=== PATIENT | male | born 1955 ===

== ENCOUNTER 2025-07-23 15:35 | Outpatient (REF) | payer BC, SELFPAY ==
--- OUTSIDE RECORDS SUMMARY | 2025-07-15 10:30 | XMS_ITS | Encounter Summary ---
Author Organization [facility] Address [address] [place] [address] Care Team Providers Care Lode Miner Name Role Phone Ethan Nieto MD Primary Care Provider +1- [phone] Reason for Visit * ReasonCommentsEar ProblemRt ear drainage/hx middle ear issues/Audio 07/10/25 Encounter Details DateTypeDepartmentCare Team (Latest Contact Info)Utcswvzchhi70/20/2025 10:30 AM EDTOffice Visit [facility] [address] [facility] [address] [place] [id number] Melanie Lorenz MD [address] [facility] [address] [place] [address] Sensorineural hearing loss (SNHL) of left ear with unrestricted hearing of right ear (Primary Dx); Mixed conductive and sensorineural hearing loss of right ear with restricted hearing of left ear; Lesion of uvula Social History Tobacco UseTypesPacks/DayYears UsedDateSmoking Tobacco: NeverSmokeless Tobacco: NeverAlcohol UseStandard Drinks/WeekCommentsNot Currently0 (1 standard drink = 0.6 oz pure alcohol)Sex and Gender InformationValueDate RecordedSex Assigned at BirthNot on fileLegal McwJefn0301/04/2024 10:44 AM EDTGender IdentityNot on file Sexual OrientationNot on filedocumented as of this encounter Last Filed Vital Signs Vital SignReadingTime TakenCommentsBlood Dpbpzfej459/7710 10:18 AM EDT Qnkrr657307/15/2025 10:18 AM EDTTemperature--Respiratory Rate--Oxygen Saturation-- Inhaled Oxygen Concentration--Bmdkyq30.6 kg (182 lb)07/15/2025 10:18 AM EDT Cklewy281.7 cm (5' 8 )07/15/2025 10:18 AM EDTBody Mass Index27.6707/15/2025 10:18 AM EDTdocumented in this encounter Progress Notes * Melanie Lorenz MD - 07/15/2025 10:30 AM EDT Subjective Patient ID: Abdulaziz Naidu is a 69 y.o. male who presents for Ear Problem (Rt ear drainage/hx middleear issues/Audio 07/10/25) Pt reports a many year h/o RT hearing loss he relates to frequent infections as a child. No h/o earsurgery. 07/10 audio shows emmie mixed HL with markedly asymmetric neve line on the RT. Review of Systems All other systems reviewed and are negative. Family History[1] Active Ambulatory Problems Diagnosis Date Noted Essential hypertension 05/08/2018 Dupuytren's contracture 05/21/2024 Seasonal allergic rhinitis 07/04/2025 Resolved Ambulatory Problems Diagnosis Date Noted No Resolved Ambulatory Problems Past Medical History: Diagnosis Date Diverticulosis DVT (deep venous thrombosis) ([facility] 2000 Ear problems Surgical History[2] Allergies[3] Medications Ordered Prior to Encounter[4] Objective Last Recorded Vitals Vitals: 07/15/25 1018 BP: 156/77 Pulse: 66 ENT Physical Exam Constitutional Appearance: patient appears well-developed and well-nourished, Head and Face Appearance: head appears normal and face appears atraumatic; Ear Ear Canals: right ear canal normal; left ear canal normal; Tympanic Membranes: left tympanic membrane normal; Ear comments: RT post TM retraction with stapediopexy. Clement lat to RT Nose External Nose: nares patent bilaterally; external nose normal; Internal Nose: nasal mucosa normal; Oral Cavity/Oropharynx Lips: normal; Teeth: normal; Gums: gingiva normal; Tongue: normal; Oral mucosa: normal; Hard palate: normal; OC/OP comments: Papilloma RT uvula Neck Neck: neck normal; neck palpation normal; Thyroid: thyroid normal; Respiratory Inspection: breathing unlabored; normal breathing rate; Auscultation: breath sounds are clear; Cardiovascular Inspection: extremities are warm and well perfused; no peripheral edema present; Auscultation: regular rate and rhythm; Assessment/Plan Diagnoses and all orders for this visit: Sensorineural hearing loss (SNHL) of left ear with unrestricted hearing of right ear Mixed conductive and sensorineural hearing loss of right ear with restricted hearing of left ear Lesion of uvula Pt's hearing and exam are c/w RT mixed HL. No active ME dz evident. Cleared for RT BLACK F/U for r/o papilloma in the office [1] No family history on file. [2] Past Surgical History: Procedure Laterality Date COLONOSCOPY 2012 DUPUYTREN CONTRACTURE RELEASE Left 02/22/2024 Release of Dupuytren's contracture with excision of palmar and volar finger fascia involving contracture of the palm and the left little finger - Dr Nelson FOOT SURGERY Bilateral Arch ROTATOR CUFF REPAIR Right [3] No Known Allergies [4] Current Outpatient Medications on File Prior to Visit Medication Sig Dispense Refill albuterol HFA 90 mcg/act inhaler Inhale 2 puffs ascorbic acid (Vitamin C) 250 MG tablet Take 1 tablet by mouth Daily aspirin 81 MG EC tablet Take 81 mg by mouth Daily therapeutic multivitamin-minerals (Theragran-M) tablet Take 1 tablet by mouth Daily No current facility-administered medications on file prior to visit. documented in this encounter Plan of Treatment DateTypeDepartmentCare Team (Latest Contact Info)Mwndcrtbkpx94/21/2026 9:30 AM ESTClinical Support [facility] [address] [place] [address] [place] [address] Salima Harris, [facility] [address] [place] [address] documented as of this encounter Visit Diagnoses Diagnosis Sensorineural hearing loss (SNHL) of left ear with unrestricted hearing of right ear- Primary Mixed conductive and sensorineural hearing loss of right ear with restricted hearing of left ear Lesion of uvula documented in this encounter Care Teams Team MemberRelationshipSpecialtyStart DateEnd Date Ethan Nieto MD [address] [place] [address] PCP - GeneralFami Medicine01/11/24documented as of this encounter
--- OUTSIDE RECORDS SUMMARY | 2025-07-23 11:30 | XMS_ITS | Encounter Summary ---
Author Organization [facility] Address [address] [place] [address] Care Team Providers Care Vibratory Pile Driver Name Role Phone Ethan Nieto MD Primary Care Provider +1- [phone] Reason for Visit * ReasonCommentsEar ProblemRemove evula lesion Encounter Details DateTypeDepartmentCare Team (Latest Contact Info)Lsetofafqwl57/28/2025 11:30 AM EDTOffice Visit [facility] [address] [facility] [address] [place] [address] Melanie Lorenz MD [address] [place] [address] [place] [address] Lesion of uvula (Primary Dx) Social History Tobacco UseTypesPacks/DayYears UsedDateSmoking Tobacco: NeverSmokeless Tobacco: NeverAlcohol UseStandard Drinks/WeekCommentsNot Currently0 (1 standard drink = 0.6 oz pure alcohol)Sex and Gender InformationValueDate RecordedSex Assigned at BirthNot on fileLegal ZzoOfoj01/06/2024 10:44 AM EDTGender IdentityNot on file Sexual OrientationNot on filedocumented as of this encounter Last Filed Vital Signs Vital SignReadingTime TakenCommentsBlood Qzkbwxmd676/7307/23/2025 11:21 AM EDT Rnkvg261407/23/2025 11:21 AM EDTTemperature--Respiratory Rate--Oxygen Saturation-- Inhaled Oxygen Concentration--Joiepb15.6 kg (182 lb)07/23/2025 11:21 AM EDT Qkxhqi572.7 cm (5' 8 )07/23/2025 11:21 AM EDTBody Mass Index27.6707/23/2025 11:21 AM EDTdocumented in this encounter Progress Notes * Melanie Lorenz MD - 07/23/2025 11:30 AM EDT Images from the original note were not included. Subjective Patient ID: Abdulaziz Naidu is a 69 y.o. male who presents for Ear Problem (Remove evula lesion) Family History[1] Active Ambulatory Problems Diagnosis Date Noted Essential hypertension 05/08/2018 Dupuytren's contracture 05/21/2024 Seasonal allergic rhinitis 07/04/2025 Resolved Ambulatory Problems Diagnosis Date Noted No Resolved Ambulatory Problems Past Medical History: Diagnosis Date Diverticulosis DVT (deep venous thrombosis) ([facility]) 2000 Ear problems Surgical History[2] Allergies[3] Medications Ordered Prior to Encounter[4] Objective Last Recorded Vitals Vitals: 07/23/25 1121 BP: 143/73 Pulse: 58 ENT Physical Exam Oral Cavity/Oropharynx OC/OP comments: Papillomatous lesion LT uvula Patient ID: Abdulaziz Naidu is a 69 y.o. male. Procedures After anesthetizing uvula with lidocaine with epi, lesion removed with a large cup forceps. Minimalself-limited bleeding Assessment/Plan Diagnoses and all orders for this visit: Lesion of uvula Uvula lesion removed without complication and sent for pathology [1] No family history on file. [2] [...] Plan of Treatment DateTypeDepartmentCare Team (Latest Contact Info)Hslwfkdngdb55/21/2026 9:30 AM ESTClinical Support [facility] [address] [place] [address] [place] [address] Salima Harris, [facility] [address] [place] [address] documented as of this encounter Visit Diagnoses Diagnosis Lesion of uvula- Primary documented in this encounter Care Teams Team MemberRelationshipSpecialtyStart DateEnd Date Ethan Nieto MD [address] [place] [address] PCP - GeneralFamily Medicine01/11/24documented as of this encounter
--- OUTSIDE RECORDS SUMMARY | 2025-07-25 15:44 | XMS_ITS | Encounter Summary ---
Author Organization [facility] Address [address] [place] [address] Care Team Providers Care Solar Fabrication Technician Name Role Phone Ethan Nieto MD Primary Care Provider +1- [phone] Encounter Details DateTypeDepartmentCare Team (Latest Contact Info)Nbfuysuojqm54/28/2025amboo flowsheet [facility] [address] [place] [address] [place] [address] Melanie Lorenz MD [address] [place] [address] [place], [place] [id number] Social History Tobacco UseTypesPacks/DayYears UsedDateSmoking Tobacco: NeverSmokeless Tobacco: NeverAlcohol UseStandard Drinks/WeekCommentsNot Currently0 (1 standard drink = 0.6 oz pure alcohol)Sex and Gender InformationValueDate RecordedSex Assigned at BirthNot on fileLegal BqcOvlh0601/04/2024 10:44 AM EDTGender IdentityNot on file Sexual OrientationNot on filedocumented as of this encounter Plan of Treatment DateTypeDepartmentCare Team (Latest Contact Info)Kowdipragym58/21/2026 9:30 AM ESTClinical Support [facility] [address] [place] [address] [place] [address] Salima Harris, [facility] [address] [place] [address] documented as of this encounter Visit Diagnoses Not on filedocumented in this encounter Care Teams Team MemberRelationshipSpecialtyStart DateEnd Date Ethan Nieto MD [address] [place] [address] PCP - GeneralFamily Medicine01/11/24documented as of this encounter
--- OUTSIDE RECORDS SUMMARY | 2025-07-25 15:44 | XMS_ITS | Clinical Summary ---
Author Organization [facility] Address [address] [facility], [address] [place] [address] Care Team Providers Care Commercial Intern Name Role Phone Ethan Nieto MD Primary Care Provider + Allergies No known active allergies Medications MedicationSigDispense QuantityRefillsLast FilledStart DateEnd DateStatus Multiple Vitamins-Minerals (THERAPEUTIC MULTIVITAMIN-MINERALS) tablet Take 1 tablet by mouth dailyActive VITAMIN E PO Take by mouthActive Ascorbic Acid (VITAMIN C) 250 MG tablet Take 1 tablet by mouth dailyActive albuterol sulfate HFA (VENTOLIN HFA) 108 (90 Base) MCG/ACT inhaler Indications:Atypical pneumoniaInhale 2 puffs into the lungs 4 times daily as needed for Wheezing 18 g 4Active Additional Information Patient not taking.Reported on 02/06/2024 aspirin (ASPIRIN ADULT LOW DOSE) 81 MG EC tablet Indications:Essential hypertension,HypertriglyceridemiaTake 1 tablet by mouth daily 100 tablet 5ActiveHospital, Clinic, or Other Facility Administered Medication Ordered DoseRouteFrequencyStart DateEnd DateStatus dexAMETHasone Sodium Phosphate injection 4 mg Indications:Non-seasonal allergic rhinitis due to pollen4 caMTJXLK81/03/2024 Active dexAMETHasone Sodium Phosphate IntraMUSCular 4 mg Indications:Seasonal allergic reaction,Seasonal allergic rhinitis, unspecified trigger4 nxTPHNPL83Ended Active Problems ProblemNoted DateDiagnosed DateSeasonal allergic /09/2025Dupuytren's jrydkngvtdc38/26/2024Essential orsjvxvgibwe93/13/6511Ajlsvusx87/22/2016Cough with jhnnan9401/19/2016Rotator cuff syndrome of right /02/2015 Resolved Problems ProblemNoted DateDiagnosed DateResolved DateSore qatmgv46 Encounters DateTypeDepartmentCare ArphPoqjkviariy79/28/2025Results Follow-Up [address] [address] Irena Jimenez, TWISTING FRAME CHANGER - GUEST RELATIONS ASSOCIATE 07/08/2025Orders Only [address] [address] Irena Jimenez, TWISTING FRAME CHANGER - GUEST RELATIONS ASSOCIATE Diabetes mellitus screening; Essential hypertension; BMI 29.0-29.9,adult; Seasonal allergic reaction; Encounter for screening for hematologic disorder; Screening for metabolic disorder; Screening for lipid disorders; Screening for malignant neoplasm of prostate; Rotator cuff syndrome of right shoulder; Dupuytren's contracture; Screening for thyroid disorder; Feldmpyyniljitpjqubp18/09/2025 9:20 AM EDTOffice Visit [address] [address] Irena Jimenez, TWISTING FRAME CHANGER - GUEST RELATIONS ASSOCIATE Essential hypertension (Primary Dx); BMI 29.0-29.9,adult; Seasonal allergic reaction; Encounter for screening for hematologic disorder; Screening for metabolic disorder; Screening for lipid disorders; Screening for malignant neoplasm of prostate; Rotator cuff syndrome of right shoulder; Dupuytren's contracture; Screening for thyroid disorder; Hypertriglyceridemia; Encounter for well adult exam without abnormal findings; Screening for cardiovascular condition; Seasonal allergic rhinitis, unspecified trigger; Diabetes mellitus vfkuellha50/30/2025Orders Only [address] [place] [address] Ethan Nieto MD Bilateral hearing loss, unspecified hearing loss type (Primary Dx)from Last 3 Months Immunizations ImmunizationAdministration DatesNext DueCOVID-19, Inactive, MODERNA BLUE border, Primary or Immunocompromised, (age 12y+)09/06/2021TDaP, ADACEL (age 10y-64y), BOOSTRIX (age 10y+), IM, 0.5mL05/09/2017 Family History Medical HistoryRelationNameCommentsSeizuresBrother 6samHigh Blood Pressure Brother 7DiabetesFatherNo Known ProblemsMotherhazelDiabetesSister 2RelationName StatusCommentsBrother 1AliveBrother 2AliveBrother 3AliveBrother 4AliveBrother 5 AliveBrother 6samDeceasedBrother 7AliveFatherDeceased (Age 51)pneumonia and strokeMotherhazelDeceasedSister 1AliveSister 2DeceasedSister 3AliveSister 4Alive Social History Tobacco UseTypesPacks/DayYears UsedDateSmoking Tobacco: NeverSmokeless Tobacco: Never Tobacco Cessation:Counseling Given: Not Answered Alcohol UseStandard Drinks/WeekCommentsNo0 (1 standard drink = 0.6 oz pure alcohol)AUDIT-CAnswerDate RecordedQ1: How often do you have a drink containing alcohol?Never09/12/2024Q2: How many drinks containing alcohol do you have on a typical day when you are drinking?Patient does not drink09/12/2024Q3: How often do you have six or more drinks on one occasion?Never09/12/2024Overall Financial Resource Strain (CARDIA)AnswerDate RecordedHow hard is it for you to pay for the very basics like food, housing, medical care, and heating?Not hard at all 10/04/2023HQ-2AnswerDate RecordedPHQ-9 Total Ekgzy490Exercise Vital SignAnswerDate RecordedOn average, how many days per week do you engage in moderate to strenuous exercise (like a brisk walk)?5 days09/12/2024On average, how many minutes do you engage in exercise at this level?60 min09/12/2024RAPARE - TransportationAnswerDate RecordedLack of Transportation (Medical)Not on file 10/04/2023In the past 12 months, has lack of transportation kept you from meetings, work, or from getting things needed for daily living?No10/04/2023 Housing Stability Vital SignAnswerDate RecordedUnable to Pay for Housing in the Last YearNot on file10/04/2023Number of Places Lived in the Last YearNot on file 10/04/2023In the last 12 months, was there a time when you did not have a steady place to sleep or slept in kekahaelter (including now)?No10/04/2023Housing Stability Vital SignAnswerDate RecordedIn the last 12 months, was there a time when you were not able to pay the mortgage or rent on time?No07/04/2025In the past 12 months, how many times have you moved where you were living? At any time in the past 12 months, were you homeless or living in a care home (including now)?No07/04/2025Hunger Vital SignAnswerDate RecordedWithin the past 12 months, you worried that your food would run out before you got the money to buymore.Never true07/04/2025Within the past 12 months, the food you bought just didn't last and you didn't have money to get more.Never true07/04/2025PRAPARE - TransportationAnswerDate RecordedIn the past 12 months, has lack of transportation kept you from medical appointments or from getting medications?No 07/04/2025In the past 12 months, has lack of transportation kept you from meetings, work, or from getting things needed for daily living?No07/04/2025HC UtilitiesAnswerDate RecordedIn the past 12 months has the [employer], gas, oil, or water [employer] threatened to shut off services in your home?No07/04/2025Sex and Gender InformationValueDate RecordedSex Assigned at BirthNot on fileLegal Sex Male11/05/2012 11:35 AM ESTGender IdentityNot on fileSexual OrientationNot on file Last Filed Vital Signs Vital SignReadingTime TakenCommentsBlood Nxjlcfes444/7407/04/2025 9:21 AM EDT Ddesl096407/04/2025 9:21 AM BNSKovqmodhflk14.6 ??C (97.9 ??F)07/04/2025 9:21 AM EDTRespiratory Uqln3824 9:21 AM EDTOxygen Mtekymmqdf85%07/04/2025 9:21 AM EDTInhaled Oxygen Concentration--Ntnglv45.5 kg (184 lb)07/04/2025 9:21 AM EDT Tlltls493.6 cm (5' 6 )07/04/2025 9:21 AM EDTBody Mass Index29. 9:21 AM EDT Plan of Treatment DateTypeDepartmentCare Team (Latest Contact Info)Reaxsuwqoyj88/09/2026 9:20 AM EDTOffice Visit [facility] [address] [place] [address] Irena Jimenez, TWISTING FRAME CHANGER - GUEST RELATIONS ASSOCIATE [address] [place] [address] 6 MONTH F/UHealth MaintenanceDue DateLast DoneCommentsFIT/FOBT: Average risk 2002Fecal-DNA (Cologuard): Average risk2002Sigmoidoscopy/CT tnpmbuiqqrxq33/26/2003Pneumococcal 50+ years Vaccine (1 of 1 - PCV)2007 Shingles vaccine (1 of 2)2007Flu vaccine (#1)5COVID-19 Vaccine (2 - season)nnual Wellness Visit (Medicare)09/13/2025 4Depression Rtgden18/05/2025, 07/04/2025DTaP/Tdap/Td vaccine (2 - Td or Tdap)Diabetes focmka44, 07/03/20241563Iicyal81, 07/03/2024, 05/09/2023, Additional history existsRespiratory Syncytial Virus (RSV) or age 60 yrs+ (1 - 1-dose 75+ series)5568Xnzuraqevlb39/10/895274/06/2023, 07/24/2012Colorectal Cancer Yehapj8801/03/2033A1C test (Diabetic or Prediabetic)Rbdsvsvjwglu35/09/2025, 4Prostate Specific Antigen (PSA) Screening or MonitoringDiscontinued 07/04/2025, 07/03/2024, 05/12/2022, Additional history existsHepatitis A vaccine Aged OutNo longer eligible based on patient's age to complete this topic Hepatitis B vaccineAged OutNo longer eligible based on patient's age to complete this topicHepatitis C screenDiscontinuedHib vaccineAged OutNo longer eligible based on patient's age to complete this topicMeningococcal (ACWY) vaccineAged OutNo longer eligible based on patient's age to complete this topicMeningococcal B vaccineAged OutNo longer eligible based on patient's age to complete this topicPolio vaccineAged OutNo longer eligible based on patient's age to complete this topic Procedures Procedure NamePriorityDate/TimeAssociated DiagnosisCommentsPSA SCREENINGRoutine 07/04/2025 Essential hypertension BMI 29.0-29.9,adult Seasonal allergic reaction Encounter for screening for hematologic disorder Screening for metabolic disorder Screening for lipid disorders Screening for malignant neoplasm of prostate Rotator cuff syndrome of right shoulder Dupuytren's contracture Screening for thyroid disorder Hypertriglyceridemia TSH REFLEX TO KS6Dfugezp97/09/2025 Essential hypertension BMI 29.0-29.9,adult Seasonal allergic reaction Encounter for screening for hematologic disorder Screening for metabolic disorder Screening for lipid disorders Screening for malignant neoplasm of prostate Rotator cuff syndrome of right shoulder Dupuytren's contracture Screening for thyroid disorder Hypertriglyceridemia CBC WITH AUTO VIFKNWCVFLNMWwcnsyj95/09/2025 Essential hypertension BMI 29.0-29.9,adult Seasonal allergic reaction Encounter for screening for hematologic disorder Screening for metabolic disorder Screening for lipid disorders Screening for malignant neoplasm of prostate Rotator cuff syndrome of right shoulder Dupuytren's contracture Screening for thyroid disorder Hypertriglyceridemia COMPREHENSIVE METABOLIC PBLDKZkbegnd42/09/2025 Essential hypertension BMI 29.0-29.9,adult Seasonal allergic reaction Encounter for screening for hematologic disorder Screening for metabolic disorder Screening for lipid disorders Screening for malignant neoplasm of prostate Rotator cuff syndrome of right shoulder Dupuytren's contracture Screening for thyroid disorder Hypertriglyceridemia LIPID QYTYAFfkdmmi28/09/2025 Essential hypertension BMI 29.0-29.9,adult Seasonal allergic reaction Encounter for screening for hematologic disorder Screening for metabolic disorder Screening for lipid disorders Screening for malignant neoplasm of prostate Rotator cuff syndrome of right shoulder Dupuytren's contracture Screening for thyroid disorder Hypertriglyceridemia HEMOGLOBIN V0VZntexlt16/09/2025 Diabetes mellitus screening HM HJXCHUHJKNQOabnaai90/10/2023 from Last 3 Months or Most Recently Relevant to Health Maintenance Results * PSA Screening (07/04/2025)ComponentValueRef RangeTest MethodAnalysis Time Performed AtPathologist SignaturePSA1.65ng/mLSpecimen (Source)Anatomical Location / LateralityCollection Method / VolumeCollection TimeReceived Time BloodBLOOD SPECIMEN / Gtttfcs5207/04/2025 Narrative Authorizing ProviderResult TypeResult StatusIrena Jimenez TWISTING FRAME CHANGER - [facility] CHEMISTRY ORDERABLESFinal Result * TSH reflex to FT4 (07/04/2025)ComponentValueRef RangeTest MethodAnalysis Time Performed AtPathologist SignatureTSH3.03uIU/mLSpecimen (Source)Anatomical Location / LateralityCollection Method / VolumeCollection TimeReceived Time BloodBLOOD SPECIMEN / Gyvoewg7007/04/2025 Narrative Authorizing ProviderResult TypeResult StatusKelcinthya Jimenez TWISTING FRAME CHANGER - [facility] CHEMISTRY ORDERABLESFinal Result * CBC with Auto Differential (07/04/2025)ComponentValueRef RangeTest Method Analysis TimePerformed AtPathologist SignatureWBC4.110^3/mLRBC4.4010^6/??L Gjetjabqng72.713.5 - 17.5 g/mCBjvukabodu23.841 - 53 %MCV95.9dBEOY71.1pgMCHC 32.8g/pHGtlpqfmvg249Z/??LRDW12.7%MPV10.5fLNeutrophils %53.3%Lymphocytes %30.6% Monocytes %11.2%Eosinophils %4.2%Basophils %0.7%Neutrophils Absolute2,185/??L Lymphocytes Absolute1,255/??LMonocytes Tqcggsji045/??LEosinophils Lsvkclwu737 /??LBasophils Jcchcwds65/??LSpecimen (Source)Anatomical Location / Laterality Collection Method / VolumeCollection TimeReceived TimeBloodBLOOD SPECIMEN / Ttmsdnt5107/04/2025 Narrative Authorizing ProviderResult TypeResult [facility] CenterIrena IbarraBra[facility] HEMATOLOGY ORDERABLESFinal Result * Hemoglobin A1C (07/04/2025)ComponentValueRef RangeTest MethodAnalysis Time Performed AtPathologist SignatureHemoglobin A1C5.6%Estimated Avg Glucose Specimen (Source)Anatomical Location / LateralityCollection Method / Volume Collection TimeReceived TimeBloodBLOOD SPECIMEN / Npcyhto8107/04/2025 Narrative Authorizing ProviderResult TypeResult [facility] CHEMISTRY ORDERABLESFinal Result * (ABNORMAL) Lipid Panel (07/04/2025)ComponentValueRef RangeTest MethodAnalysis TimePerformed AtPathologist SignatureCholesterol, Sceav630rb/jUPCP5613 - 70 mg/dLLDL Tvnnbfcgtvm340Qmosvatzrurkl329ae/dLChol/HDL Ratio4.0VLDLCholesterol non RAT652Tmzfdnjv (Source)Anatomical Location / LateralityCollection Method / VolumeCollection TimeReceived TimeBloodBLOOD SPECIMEN / Sbhgzds1407/04/2025 Narrative Authorizing ProviderResult TypeResult [facility] CHEMISTRY ORDERABLESFinal Result * Comprehensive Metabolic Panel (07/04/2025)ComponentValueRef RangeTest Method Analysis TimePerformed AtPathologist DexjkefuzWdtrat205puoc/FMfjkfsqs609otxj/L Potassium4.6mmol/TYGP28xb/dLCreatinine0.86mg/kYKstciyw051rc/qOCPP78B/PCVS20K/L Calcium9.3mg/dLTotal Protein6.66.4 - 8.2 g/pSBH963ixqb/LAlbumin4.3g/dLAlkaline Kzaesqnddcs13G/LTotal Bilirubin0.30.1 - 1.4 mg/dLEst, Glom Filt Uuoi61Lmocx GapSpecimen (Source)Anatomical Location / LateralityCollection Method / Volume Collection TimeReceived TimeBloodBLOOD SPECIMEN / Lyknaxb2807/04/2025 Narrative Authorizing ProviderResult TypeResult StatusIrena Jimenez APRN - GUEST RELATIONS ASSOCIATE CHEMISTRY ORDERABLESFinal Result * HM COLONOSCOPY (01/03/2023) Impressions Zara Colbert RN - 01/03/2023 Colonoscopy Narrative Performed by [facility] Patient Name: Abdulaziz Naidu ?? Procedure Date No Time: 01/03/2023 ?? CSN : [id number] Date of : 1955 Admit Type: Outpatient Age: 67 Room: [place] [address] Gender: Male Note Status: Finalized Attending MD: Shadi Mendes DO, Procedure: ? Colonoscopy Indications: ? Screening for colorectal malignant neoplasm Providers: ? Shadi Mendes DO Referring MD: ?Shadi Mendes DO Medicines: ? Propofol per Anesthesia Complications: ? No immediate complications. Procedure: ? After I obtained informed consent, the scope was ? passed under direct vision. Throughout the procedure, ? the patient's blood pressure, pulse, and oxygen ? saturations were monitored continuously. The OLYMNPUS ? CF-[id number] #[id number] ADULT COLONOSCOPE was introduced ? through the anus and advanced to the cecum, identified ? by appendiceal orifice and ileocecal valve. The ? colonoscopy was performed with moderate difficulty due ? to significant looping. Successful completion of the ? procedure was aided by applying abdominal pressure. ? The patient tolerated the procedure well. The quality ? of the bowel preparation was adequate to identify ? polyps greater than 5 mm in size. Findings: ? The perianal and digital rectal examinations were normal. ? Multiple large-mouthed diverticula were found in the sigmoid colon, ? descending colon and transverse colon. ? The exam was otherwise without abnormality on direct and retroflexion ? views. Estimated Blood Loss: ??Estimated blood loss: none. Impression: ?- Diverticulosis in the sigmoid colon, in the ? descending colon and in the transverse??colon. ? - The examination was otherwise normal on direct and ? retroflexion views. ? - No specimens collected. Recommendation: ?- Discharge patient to home. ? - Patient has a contact number available for ? emergencies. The signs and symptoms of potential ? delayed complications were discussed with the patient. ? Return to normal activities??tomorrow. Written ? discharge instructions were provided to the patient. ? - High fiber diet for the rest of the patient's life. ? - Return to my office PRN. ? - Repeat colonoscopy in 10 years for screening ? purposes. Procedure Code(s): ? --- Professional --- ? G0121, Colorectal cancer screening; colonoscopy on ? individual not meeting criteria??for high risk Diagnosis Code(s): ? --- Professional --- ? Z12.11, Encounter for screening for malignant neoplasm of colon ? K57.30, Diverticulosis of large intestine without perforation or abscess ? without bleeding CPT copyright 2021??[employer]. All rights reserved. The codes documented in this report are preliminary and upon reflector driller and deburrer review may be revised to meet current compliance requirements. ??DO Shadi Hartley DO 01/03/2023 8:16:16 AM Number of Addenda: 0 Note Initiated On: 01/03/2023 7:49 AM Procedure Note Shadi Mendes DO - 01/03/2023 [facility] Patient Name: Abdulaziz Naidu ?? Procedure Date No Time: 01/03/2023 ?? CSN : [id number] Date of : 1955 Admit Type: Outpatient Age: 67 Room: [place] [address] Gender: Male Note Status: Finalized Attending MD: Shadi Mendes DO, Procedure: ? Colonoscopy Indications: ? Screening for colorectal malignant neoplasm Providers: ?Shadi Mendes DO Referring MD: ?Shadi Mendes DO Medicines: ? Propofol per Anesthesia Complications: ? No immediate complications. Procedure: ? After I obtained informed consent, the scope was ?passed under direct vision. Throughout the procedure, ?the patient's blood pressure, pulse, and oxygen ?saturations were monitored continuously. The OLYMNPUS ?CF-[id number] #[id number] ADULT COLONOSCOPE was introduced ?through the anus and advanced to the cecum, identified ?by appendiceal orifice and ileocecal valve. The ?colonoscopy was performed with moderate difficulty due ?to significant looping. Successful completion of the ?procedure was aided by applying abdominal pressure. ?The patient tolerated the procedure well. The quality ?of the bowel preparation was adequate to identify ?polyps greater than 5 mm in size. Findings: ?The perianal and digital rectal examinations were normal. ?Multiple large-mouthed diverticula were found in the sigmoid colon, ?descending colon and transverse colon. ?The exam was otherwise without abnormality on direct and retroflexion ?views. Estimated Blood Loss: ??Estimated blood loss: none. Impression: ?- Diverticulosis in the sigmoid colon, in the ?descending colon and in the transverse colon. ?- The examination was otherwise normal on direct and ?retroflexion views. ?- No specimens collected. Recommendation: ?- Discharge patient to home. ?- Patient has a contact number available for ?emergencies. The signs and symptoms of potential ?delayed??complications were discussed with the patient. ?Return to normal activities tomorrow. Written ?discharge instructions were provided to the patient. ?- High fiber diet for the rest of??the patient's life. ?- Return to my office PRN. ?- Repeat colonoscopy in 10 years for screening ?purposes. Procedure Code(s): ? --- Professional --- ?G0121, Colorectal cancer screening; colonoscopy on ?individual not meeting criteria for high risk Diagnosis Code(s): ?--- Professional --- ?Z12.11, Encounter for screening for malignant neoplasm of colon ?K57.30, Diverticulosis of large intestine without perforation or abscess ?without bleeding CPT copyright 2021 [employer]. All rights reserved. The codes documented in this report are preliminary and upon reflector driller and deburrer review may be revised to meet current compliance requirements. ??DO Shadi Hartley DO 01/03/2023 8:16:16 AM Number of Addenda: 0 Note Initiated On: 01/03/2023 7:49 AM Specimen Collected: 01/03/23 07:49 Performed by: [facility] Last Resulted: 01/03/23 08:16 Received From: [employer] Result Received: 09/12/23 08:38 View Encounter ?? Narrative Authorizing ProviderResult TypeResult StatusHistorical Provider MDHEALTH MAINTENANCEFinal Result from Last 3 Months or Most Recently Relevant to Health Maintenance Insurance Care Teams Team MemberRelationshipSpecialtyStart DateEnd Ethan Nieto MD [address] [place] [address] [facility]01/31/19
--- OUTSIDE RECORDS SUMMARY | 2025-07-25 15:44 | XMS_ITS | Encounter Summary ---
Author Organization [facility] Address [address] [place] [address] Care Team Providers Care Manufacturers Service Representative Name Role Phone Ethan Nieto MD Primary Care Provider [phone] Encounter Details DateTypeDepartmentCare Team (Latest Contact Info)Rdgcjsluroc14/20/2025Travel Social History Tobacco UseTypesPacks/DayYears UsedDateSmoking Tobacco: NeverSmokeless Tobacco: NeverAlcohol UseStandard Drinks/WeekCommentsNot Currently0 (1 standard drink = 0.6 oz pure alcohol)Sex and Gender InformationValueDate RecordedSex Assigned at BirthNot on fileLegal SxcZtnt4301/04/2024 10:44 AM EDTGender IdentityNot on file Sexual OrientationNot on filedocumented as of this encounter Plan of Treatment DateTypeDepartmentCare Team (Latest Contact Info)Qizyvruhzfd44/21/2026 9:30 AM ESTClinical Support [facility] [address] [place] [address] Salima Harris, [facility] [address] [facility] [facility] [place] [address] documented as of this encounter Visit Diagnoses Not on filedocumented in this encounter Care Teams Team MemberRelationshipSpecialtyStart DateEnd Date Ethan Nieto MD [address] [place] [address] PCP - GeneralFamily Medicine01/11/24documented as of this encounter
--- OUTSIDE RECORDS SUMMARY | 2025-07-25 15:44 | XMS_ITS | Encounter Summary ---
Author Organization [facility] Address [address], [address] [place] [address] Care Team Providers Care Fruit Packer Face And Fill Name Role Phone Ethan Nieto MD Primary Care Provider + Encounter Details DateTypeDepartmentCare Team (Latest Contact Info)Lrwatqphmed33/28/2025Results Follow-Up [facility] [address] [place] [address] Irena Jimenez, LOG SORTING SUPERVISOR - RETENTION SPECIALIST [address] [place] [address] Social History Tobacco UseTypesPacks/DayYears UsedDateSmoking Tobacco: NeverSmokeless Tobacco: NeverAlcohol UseStandard Drinks/WeekCommentsNo0 (1 standard drink = 0.6 [...] heating?Not hard at all 10/04/2023HQ-2AnswerDate RecordedPHQ-9 Total Ywfjr652Exercise Vital SignAnswerDate RecordedOn average, how many days [...] steady place to sleep or slept in ashelter (including now)?No10/04/2023Housing Stability Vital SignAnswerDate RecordedIn the last 12 months, was there a time when you were not able to pay the mortgage or rent on time?No07/04/2025In the past 12 months, how many times have you moved where you were living? At any time in the past 12 months, were you homeless or living in a fdc (including now)?No07/04/2025Hunger Vital SignAnswerDate RecordedWithin the past [...] RecordedIn the past 12 months has the electric, gas, oil, or water company threatened to shut off services in your home?No07/04/2025Sex and Gender InformationValueDate RecordedSex Assigned at BirthNot on fileLegal Sex Male11/05/2012 11:35 AM ESTGender IdentityNot on fileSexual OrientationNot on filedocumented as of this encounter Plan of Treatment DateTypeDepartmentCare Team (Latest Contact Info)Lhodjahmhlt49/09/2026 9:20 AM EDTOffice Visit [facility] [address] [place] [address] Irena Jimenez, LOG SORTING SUPERVISOR - RETENTION SPECIALIST [address] [place] [address] 6 MONTH F/Udocumented as of this encounter Visit Diagnoses Not on filedocumented in this encounter Additional Health Concerns AssessmentNoted TimeA fall risk assessment has been completed for the patient 09/12/2024 11:41 AM ESTdocumented as of this encounter Care Teams Team MemberRelationshipSpecialtyStart DateEnd Date Ethan Nieto MD [address] [place] [address] PCP - General01/31/19documented as of this encounter
--- OUTSIDE RECORDS SUMMARY | 2025-07-25 15:44 | XMS_ITS | Encounter Summary ---
Author Organization [facility] Address [address] [place] [address] Care Team Providers Care Cattle Sorter Name Role Phone Ethan Nieto MD Primary Care Provider +1- [phone] Encounter Details DateTypeDepartmentCare Team (Latest Contact Info)Gfqsycsbtmo12/28/2025Travel Social History Tobacco UseTypesPacks/DayYears UsedDateSmoking Tobacco: NeverSmokeless Tobacco: NeverAlcohol UseStandard Drinks/WeekCommentsNot Currently0 (1 standard drink = 0.6 oz pure alcohol)Sex and Gender InformationValueDate RecordedSex Assigned at BirthNot on fileLegal UvmWldr9601/04/2024 10:44 AM EDTGender IdentityNot on file Sexual OrientationNot on filedocumented as of this encounter Plan of Treatment DateTypeDepartmentCare Team (Latest Contact Info)Ofrgvorjlep40/21/2026 9:30 AM ESTClinical Support [facility] [address] [place] [address] Salima Harris, [facility] [address] [facility] [place] [address] documented as of this encounter Visit Diagnoses Not on filedocumented in this encounter Care Teams Team MemberRelationshipSpecialtyStart DateEnd Date Ethan Nieto MD [address] [place] [address] PCP - GeneralFamily Medicine01/11/24documented as of this encounter
--- OUTSIDE RECORDS SUMMARY | 2025-07-25 15:44 | XMS_ITS | Encounter Summary ---
Author Organization [facility] Address [address], [address] [place] [address] Care Team Providers Care Research Quality Assurance Analyst Name Role Phone Ethan Nieto MD Primary Care Provider + Encounter Details DateTypeDepartmentCare Team (Latest Contact Info)Cdvhsrywdqd55/13/2025Orders Only [facility] [address] [place] [address] Irena Jimenez, EMERGENCY MEDICINE PHYSICIAN - SINKER WINDER [address] [place] [address] Diabetes mellitus screening; Essential hypertension; BMI 29.0-29.9,adult; Seasonal allergic reaction; Encounter for screening for hematologic disorder; Screening for metabolic disorder; Screening for lipid disorders; Screening for malignant neoplasm of prostate; Rotator cuff syndrome of right shoulder; Dupuytren's contracture; Screening for thyroid disorder; Hypertriglyceridemia Social History Tobacco UseTypesPacks/DayYears UsedDateSmoking Tobacco: NeverSmokeless [...] heating?Not hard at all 10/04/2023HQ-2AnswerDate RecordedPHQ-9 Total Vyhoa577Exercise Vital SignAnswerDate RecordedOn average, how many days [...] steady place to sleep or slept in [facility] (including now)?No10/04/2023Housing Stability Vital SignAnswerDate RecordedIn the last 12 months, was there a time when you were not able to pay the mortgage or rent on time?No07/04/2025In the past 12 months, how many times have you moved where you were living? At any time in the past 12 months, were you homeless or living in a long-term (including now)?No07/04/2025Hunger Vital SignAnswerDate RecordedWithin the past [...] Plan of Treatment DateTypeDepartmentCare Team (Latest Contact Info)Tvhhlveyooz09/09/2026 9:20 AM EDTOffice Visit [facility] [address] [place] [address] Irena Jimenez, EMERGENCY MEDICINE PHYSICIAN - SINKER WINDER [address] [place] [address] 6 MONTH F/Udocumented as of this encounter Procedures Procedure NamePriorityDate/TimeAssociated DiagnosisCommentsPSA SCREENINGRoutine 07/04/2025 Essential hypertension BMI 29.0-29.9,adult Seasonal allergic reaction Encounter for screening for hematologic disorder Screening for metabolic disorder Screening for lipid disorders Screening for malignant neoplasm of prostate Rotator cuff syndrome of right shoulder Dupuytren's contracture Screening for thyroid disorder Hypertriglyceridemia TSH REFLEX TO OC8Pinctgw34/09/2025 Essential hypertension BMI 29.0-29.9,adult Seasonal allergic reaction Encounter for screening for hematologic disorder Screening for metabolic disorder Screening for lipid disorders Screening for malignant neoplasm of prostate Rotator cuff syndrome of right shoulder Dupuytren's contracture Screening for thyroid disorder Hypertriglyceridemia CBC WITH AUTO SXKGAWDPQIGWGqpkohy42/09/2025 Essential hypertension BMI 29.0-29.9,adult Seasonal allergic reaction Encounter for screening for hematologic disorder Screening for metabolic disorder Screening for lipid disorders Screening for malignant neoplasm of prostate Rotator cuff syndrome of right shoulder Dupuytren's contracture Screening for thyroid disorder Hypertriglyceridemia HEMOGLOBIN Q3TYzdvegd07/09/2025 Diabetes mellitus screening LIPID XWFGFZakelrl26/09/2025 Essential hypertension BMI 29.0-29.9,adult Seasonal allergic reaction Encounter for screening for hematologic disorder Screening for metabolic disorder Screening for lipid disorders Screening for malignant neoplasm of prostate Rotator cuff syndrome of right shoulder Dupuytren's contracture Screening for thyroid disorder Hypertriglyceridemia COMPREHENSIVE METABOLIC UCYERGqeooou70/09/2025 Essential hypertension BMI 29.0-29.9,adult Seasonal allergic reaction Encounter for screening for hematologic disorder Screening for metabolic disorder Screening for lipid disorders Screening for malignant neoplasm of prostate Rotator cuff syndrome of right shoulder Dupuytren's contracture Screening for thyroid disorder Hypertriglyceridemia documented in this encounter Results * PSA Screening (07/04/2025)ComponentValueRef RangeTest MethodAnalysis Time Performed AtPathologist SignaturePSA1.65ng/mLSpecimen (Source)Anatomical Location / LateralityCollection Method / VolumeCollection TimeReceived Time BloodBLOOD SPECIMEN / Mveyfpn8907/04/2025 Narrative Authorizing ProviderResult TypeResult StatusIrena Jimenez EMERGENCY MEDICINE PHYSICIAN - [facility] CHEMISTRY ORDERABLESFinal Result * TSH reflex to FT4 (07/04/2025)ComponentValueRef RangeTest MethodAnalysis Time Performed AtPathologist SignatureTSH3.03uIU/mLSpecimen (Source)Anatomical Location / LateralityCollection Method / VolumeCollection TimeReceived Time BloodBLOOD SPECIMEN / Tmvkavx6207/04/2025 Narrative Authorizing ProviderResult TypeResult StatusIrena Jimenez EMERGENCY MEDICINE PHYSICIAN - [facility] CHEMISTRY ORDERABLESFinal Result * CBC with Auto Differential (07/04/2025)ComponentValueRef RangeTest Method Analysis TimePerformed AtPathologist SignatureWBC4.110^3/mLRBC4.4010^6/??L Yvsbkotjxl74.713.5 - 17.5 g/rWHnuiuakksj67.841 - 53 %MCV95.4sEMEG56.1pgMCHC 32.8g/tGWwgnwsoyj025M/??LRDW12.7%MPV10.5fLNeutrophils %53.3%Lymphocytes %30.6% Monocytes %11.2%Eosinophils %4.2%Basophils %0.7%Neutrophils Absolute2,185/??L Lymphocytes Absolute1,255/??LMonocytes Mfzsydms142/??LEosinophils Chpljxrs271 /??LBasophils Aivudcfo16/??LSpecimen (Source)Anatomical Location / Laterality Collection Method / VolumeCollection TimeReceived TimeBloodBLOOD SPECIMEN / Sajdexp1607/04/2025 Narrative Authorizing ProviderResult TypeResult StatusIrena Jimenez [facility] HEMATOLOGY ORDERABLESFinal Result * Comprehensive Metabolic Panel (07/04/2025)ComponentValueRef RangeTest Method Analysis TimePerformed AtPathologist PfaldarmwLpfnck993bqph/TGwywnliz207dywy/L Potassium4.6mmol/TXPL91hz/dLCreatinine0.86mg/cUUvovqzr172dq/hZOLV89R/YTMF22N/L Calcium9.3mg/dLTotal Protein6.66.4 - 8.2 g/eJDK760tbsz/LAlbumin4.3g/dLAlkaline Pizuxatahls36X/LTotal Bilirubin0.30.1 - 1.4 mg/dLEst, Glom Filt Nmfj48Ilqie GapSpecimen (Source)Anatomical Location / LateralityCollection Method / Volume Collection TimeReceived TimeBloodBLOOD SPECIMEN / Wnqddkr6207/04/2025 Narrative Authorizing ProviderResult TypeResult StatusIrena Jimenez [facility] CHEMISTRY ORDERABLESFinal Result * (ABNORMAL) Lipid Panel (07/04/2025)ComponentValueRef RangeTest MethodAnalysis TimePerformed AtPathologist SignatureCholesterol, Yimzl272nj/eFDMZ0337 - 70 mg/dLLDL Zxupcwngaio692Qcrthgnocpiyd629of/dLChol/HDL Ratio4.0VLDLCholesterol non SRF104Pibpuqjk (Source)Anatomical Location / LateralityCollection Method / VolumeCollection TimeReceived TimeBloodBLOOD SPECIMEN / Iznpluj3207/04/2025 Narrative Authorizing ProviderResult TypeResult [facility] CenterIrena Jimenez [facility] CHEMISTRY ORDERABLESFinal Result * Hemoglobin A1C (07/04/2025)ComponentValueRef RangeTest MethodAnalysis Time Performed AtPathologist SignatureHemoglobin A1C5.6%Estimated Avg Glucose Specimen (Source)Anatomical Location / LateralityCollection Method / Volume Collection TimeReceived TimeBloodBLOOD SPECIMEN / Lvsnxwy1807/04/2025 Narrative Authorizing ProviderResult TypeResult StatusIrena Jimenez EMERGENCY MEDICINE PHYSICIAN - [facility] CHEMISTRY ORDERABLESFinal Result documented in this encounter Visit Diagnoses Diagnosis Diabetes mellitus screening Screening for diabetes mellitus Essential hypertension Unspecified essential hypertension BMI 29.0-29.9,adult Body Mass Index 29.0-29.9, adult Seasonal allergic reaction Allergic rhinitis, cause unspecified Encounter for screening for hematologic disorder Screening for metabolic disorder Screening for lipid disorders Screening for malignant neoplasm of prostate Rotator cuff syndrome of right shoulder Disorders of bursae and tendons in shoulder region, unspecified Dupuytren's contracture Contracture of palmar fascia Screening for thyroid disorder Hypertriglyceridemia Pure hyperglyceridemia documented in this encounter Additional Health Concerns AssessmentNoted TimeA fall risk assessment has been completed for the patient 09/12/2024 11:41 AM ESTdocumented as of this encounter Care Teams Team MemberRelationshipSpecialtyStart DateEnd Date Ethan Nieto MD [address] [place] [address] PCP - General01/31/19documented as of this encounter
--- OUTSIDE RECORDS SUMMARY | 2025-07-25 15:44 | XMS_ITS | Encounter Summary ---
Author Organization [facility] Address [address] [place] [address] Care Team Providers Care Field Assembly Supervisor Name Role Phone Ethan Nieto MD Primary Care Provider +1- [phone] Encounter Details DateTypeDepartmentCare Team (Latest Contact Info)Wijrxuliiaa86/20/2025amboo flowsheet [facility] [address] [place] [address] Melanie Lorenz MD [address] [place], [place] [address] Social History Tobacco UseTypesPacks/DayYears UsedDateSmoking Tobacco: NeverSmokeless Tobacco: NeverAlcohol UseStandard Drinks/WeekCommentsNot Currently0 (1 standard drink = 0.6 oz pure alcohol)Sex and Gender InformationValueDate RecordedSex Assigned at BirthNot on fileLegal BfcMxle7801/04/2024 10:44 AM EDTGender IdentityNot on file Sexual OrientationNot on filedocumented as of this encounter Plan of Treatment DateTypeDepartmentCare Team (Latest Contact Info)Qtozpcpvmap25/21/2026 9:30 AM ESTClinical Support [facility] [address] [place] [address] Salima Harris, [facility] [address] [place] [address] documented as of this encounter Visit Diagnoses Not on filedocumented in this encounter Care Teams Team MemberRelationshipSpecialtyStart DateEnd Date Ethan Nieto MD [address] [place] [address] PCP - GeneralFamily Medicine01/11/24documented as of this encounter
--- OUTSIDE RECORDS SUMMARY | 2025-07-25 15:44 | XMS_ITS | Patient Health Record ---
Author Organization [facility] [place] Address [address] [place] [address] Support Name Relationship Address Phone Tung Naidu Emergency Contact Unknown Abdulaziz Naidu Guarantor Unknown [phone] Reason For Referral No Information Plan Of Treatment No Information Insurance Providers Payer Name Payer Address Payer Phone Subscriber Number Group Number Insured Name Patient Relationship to Insured Coverage Start Date Coverage End Date SELF PAY ON PATIENT DEMOGRAPHICS Abdulaziz NaiduSelf - patient is the [id number]/14/2008
--- OUTSIDE RECORDS SUMMARY | 2025-07-25 15:44 | XMS_ITS | Clinical Summary ---
Author Organization [facility] Address [address] [place] [address] Care Team Providers Care Machine Repairer Name Role Phone Ethan Nieto MD Primary Care Provider +1- [phone] Allergies No known active allergies Medications MedicationSigDispense QuantityRefillsLast FilledStart DateEnd DateStatus albuterol HFA 90 mcg/act inhaler Inhale 2 puffs10/18/2023ctive ascorbic acid (Vitamin C) 250 MG tablet Take 1 tablet by mouth DailyActive therapeutic multivitamin-minerals (Theragran-M) tablet Take 1 tablet by mouth DailyActive aspirin 81 MG EC tablet Take 81 mg by mouth Daily5Active Active Problems ProblemNoted DateDiagnosed DateSeasonal allergic btysrxul80/09/2025Dupuytren's /26/2024Essential ygguejejijrf67/13/2018 Encounters DateTypeDepartmentCare TdptJdmqfjxihai31/28/2025 11:30 AM EDTOffice Visit [facility] [address] [place] [address] Melanie Lorenz MD Lesion of uvula (Primary Dx)07/23/2025amboo flowsheet [facility] [address] [place] [address] Melanie Lorenz MD 07/23/20250159Tcfdff50/20/2025 10:30 AM EDTOffice Visit [facility] [address] [place] [address] Melanie Lorenz MD Sensorineural hearing loss (SNHL) of left ear with unrestricted hearing of right ear (Primary Dx); Mixed conductive and sensorineural hearing loss of right ear with restricted hearing of left ear; Lesion of uvula07/15/2025[facility] flowsheet [facility] [address] [facility] [address] [place] [address] Melanie Lorenz MD 07/15/20251676Roxhse53/15/2025 8:00 AM EDTClinical Support [facility] [address] [facility] [address] [place] [address] Salima Harris CCC-A Mixed conductive and sensorineural hearing loss of right ear with restricted hearing of left ear (Primary Dx); Otorrhea, right; Tinnitus, right07/10/2025bstract [facility] [address] [facility] [place] [place] [address] Salima Harris CCC-A 07/10/2025[facility] flowsheet [facility] [address] [facility] [address] [place] [address] Salima Harrsi CCC-A from Last 3 Months Immunizations ImmunizationAdministration DatesNext EywVhlv6105/09/2017 Family History RelationNameStatusCommentsFatherDeceasedMotherDeceased Social History Tobacco UseTypesPacks/DayYears UsedDateSmoking Tobacco: NeverSmokeless Tobacco: Never Tobacco Cessation:Counseling Given: Not Answered Alcohol UseStandard Drinks/WeekCommentsNot Currently0 (1 standard drink = 0.6 oz pure alcohol)Sex and Gender InformationValueDate RecordedSex Assigned at Not on fileLegal LuvXoee3001/04/2024 10:44 AM EDTGender IdentityNot on fileSexual OrientationNot on file Last Filed Vital Signs Vital SignReadingTime TakenCommentsBlood Rersrlhg973/7307/23/2025 11:21 AM EDT Ssbql656407/23/2025 11:21 AM EDTTemperature--Respiratory Rate--Oxygen Saturation-- Inhaled Oxygen Concentration--Icrngu10.6 kg (182 lb)07/23/2025 11:21 AM EDT Aaslok027.7 cm (5' 8 )07/23/2025 11:21 AM EDTBody Mass Index27.6707/23/2025 11:21 AM EDT Plan of Treatment DateTypeDepartmentCare Team (Latest Contact Info)Ngajntthyad51/21/2026 9:30 AM ESTClinical Support [facility] [address] [place] [address] Salima Harris, [facility] [address] [facility] [place] [address] Health MaintenanceDue DateLast DoneCommentsCT Foefssztgrco83/26/1958FIT-DNA 1957FIT1957FOBT1957 9606Dxbzmjkpkpjtp99/26/1958MMR Vaccines (1 of 1 - Standard series)1958Pneumococcal Vaccine: 65+ Years (1 of 1 - PCV) 2007DTaP/Tdap/Td Vaccines (2 - Td or Tdap)COVID-19 Vaccine (2 - season)Influenza Vaccine (#1)2025 Ghbkyuqvkio64, 01/03/2023olorectal Cancer Vhesndzqp70/10/2033 HIB VaccinesAged OutNo longer eligible based on patient's age to complete this topicHPV VaccinesAged OutNo longer eligible based on patient's age to complete this topicHepatitis A VaccinesAged OutNo longer eligible based on patient's age to complete this topicHepatitis B VaccinesAged OutNo longer eligible based on patient's age to complete this topicIPV VaccinesAged OutNo longer eligible based on patient's age to complete this topicMeningococcal B VaccineAged OutNo longer eligible based on patient's age to complete this topicMeningococcal VaccineAged OutNo longer eligible based on patient's age to complete this topicRotavirus VaccinesAged OutNo longer eligible based on patient's age to complete this topic Procedures Procedure NamePriorityDate/TimeAssociated DiagnosisCommentsAUDITORY FUNCTION OXKRTAvflctq94/15/2025 11:23 AM EDT from Last 3 Months Results * Auditory function tests (07/10/2025 11:23 AM EDT) Narrative Salima Harris, [facility] - 07/10/2025 11:23 AM EDT Right Ear: Mild sloping to severe mixed hearing loss Left Ear: ?? Mild sloping to severe hearing loss above 3K Hz Authorizing ProviderResult TypeResult StatusDeimeldaradha Fam Steven [facility]-AAUDIOLOGY SERVICES ORDERABLESFinal Result from Last 3 Months Insurance Care Teams Team MemberRelationshipSpecialtyStart DateEnd Date Ethan Nieto MD [address] [place] [address] PCP - GeneralFamily Medicine01/11/24
== END 2025-07-23 15:36 | disposition home or self-care (01) ==
LOC: LAB 15:35
PROVIDERS: PCP Family Medicine; Visit Provider Podiatrist Foot & Ankle Surgery
DX: D10.39 Benign neoplasm of other parts of mouth (principal)
CPT/HCPCS: 88305